=== PATIENT | female | born 1990 | race American Indian/Alaskan Native ===

== ENCOUNTER 2016-08-01 14:33 | Emergency (ER) | payer OTHER ==
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
[2016-08-01] MEDS ORDERED: MOTRIN PO ONE (18:58)
[2016-08-01 19:08] VITALS: BP 119/80
== END 2016-08-01 19:07 | disposition home or self-care (01) ==
LOC: ED 14:33
DX: S39.012A Strain of muscle, fascia and tendon of lower back, initial encounter (principal); E11.9 Type 2 diabetes mellitus without complications; Z79.4 Long term (current) use of insulin; V49.9XXA Car occupant (driver) (passenger) injured in unspecified traffic accident, initial encounter; W22.11XA Striking against or struck by driver side automobile airbag, initial encounter; Y93.89 Activity, other specified; Y99.9 Unspecified external cause status; Y92.410 Unspecified street and highway as the place of occurrence of the external cause
CPT/HCPCS: 99282

== ENCOUNTER 2017-03-10 18:14 | Emergency (ER) | payer SELFPAY ==
[2017-03-10 18:37] VITALS: BP 131/87
[2017-03-10 19:43] LABS: Basophils % (Auto) 0.3 % (0.0-1.8); Eosinophils % (Auto) 3.3 % (0.0-4.3); Hematocrit 37.8 % (30.3-42.9); Hemoglobin 12.9 gm/dl (10.1-14.3); Mean Corpuscular HGB Conc 34 % (30-34); Mean Corpuscular Hemoglobin 26 pg (28-32); Mean Corpuscular Volume 78 fl (79-97); Platelet Count 250 K/mm3 (140-440); Red Blood Count 4.87 M/mm3 (3.65-5.03); Red Cell Distribution Width 13.6 % (13.2-15.2); White Blood Count 6.8 K/mm3 (4.5-11.0)
[2017-03-10 19:59] LABS: Anion Gap 17 mmol/L; BUN/Creatinine Ratio 19; Blood Urea Nitrogen 13 mg/dL (7-17); Calcium 9.6 mg/dL (8.4-10.2); Carbon Dioxide 26 mmol/L (22-30); Chloride 98.7 mmol/L (98-107); Glucose 201 mg/dL (65-100); Potassium 4.2 mmol/L (3.6-5.0); Sodium 137 mmol/L (137-145)
== END 2017-03-10 23:14 | disposition left against medical advice (07) ==
LOC: ED 18:14
DX: R07.9 Chest pain, unspecified (principal); Z53.21 Procedure and treatment not carried out due to patient leaving prior to being seen by health care provider
CPT/HCPCS: 36415; 80048; 82805; 82962; 84484; 85025; 93005; 93010